=== PATIENT | male | born 1965 | race African-American/Black ===

== ENCOUNTER 2018-06-25 12:43 | Inpatient (IN) | payer OTHER ==
[2018-06-25 14:11] VITALS: BMI 21.2
--- NOTE | 2018-06-25 16:41 | HP ---
CIWA Score Nausea/Vomitin Muscle Tremors: 2 Anxiety: 3 Agitation: 2 Paroxysmal Sweats: 3 Orientation: 0-Oriented Tacttile Disturbances: 1-Very Mild Itch/Numbness Auditory Disturbances: 0-None Visual Disturbances: 0-None Headache: 0-None Present CIWA-Ar Total Score: 13 - Admission Criteria OASAS Guidelines: Admission for Medically Managed Detox: Requires at least one of the followin. CIWA greater than 12 2. Seizures within the past 24 hours 3. Delirium tremens within the past 24 hours 4. Hallucinations within the past 24 hours 5. Acute intervention needed for co occurring medical disorder 6. Acute intervention needed for co occurring psychiatric disorder 7. Severe withdrawal that cannot be handled at a lower level of care (continued vomiting, continued diarrhea, abnormal vital signs) requiring intravenous medication and/or fluids 8. Patient presents the following: CIWA greater than 12 Admission Criteria Met: Admission criteria met Admission ROS [facility] - [facility] Chief Complaint: I need to help myself , I need to stop drinking . Allergies/Adverse Reactions: Allergies Allergy/AdvReac Type Severity Reaction Status Date / Time fish derived [Fish derived] Allergy Mild Verified 07/28/15 18:32 sulfamethoxazole Allergy Mild Vomiting Verified 07/28/15 18:32 [From Bactrim DS] trimethoprim Allergy Mild Vomiting Verified 07/28/15 18:32 [From Bactrim DS] Unclassified Drug Allergy Mild Verified 07/28/15 18:32 History of Present Illness: 52 y/o m pt with a [id number] h/o chronic alcoholism seeking detox., - Ebola screening Have you traveled outside of the country in the last 21 days: No Have you had contact with anyone from an Ebola affected area: No Have you been sick,other than usual withdrawal symptoms: No Do you have a fever: No - Review of Systems Constitutional: Loss of Appetite, Changes in sleep, Unexplained wgt Loss (10 lkbs wt loss) EENT: reports: Dental Problems (upper and lower dentures) Respiratory: reports: No Symptoms reported Cardiac: reports: No Symptoms Reported GI: reports: No Symptoms Reported, Nausea : reports: No Symptoms Reported Musculoskeletal: reports: No Symptoms Reported Integumentary: reports: No Symptoms Reported Neuro: reports: Tremors Endocrine: reports: No Symptoms Reported Hematology: reports: No Symptoms Reported Psychiatric: reports: Anxious Other Systems: Reviewed and Negative Patient History - Patient Medical History Hx Anemia: No Hx Asthma: No Hx Chronic Obstructive Pulmonary Disease (COPD): No Hx Cancer: No Hx Cardiac Disorders: No Hx Congestive Heart Failure: No Hx Hypertension: No Hx Hypercholesterolemia: No Hx Pacemaker: No HX Cerebrovascular Accident: No Hx Seizures: No Hx Dementia: No Hx Diabetes: No Hx Gastrointestinal Disorders: No Hx Liver Disease: No Hx Genitourinary Disorders: No Hx Sexually Transmitted Disorders: No Hx Renal Disease (ESRD): No Hx Thyroid Disease: No Hx Human Immunodeficiency Virus (HIV): Yes (1987, not on meds ) Hx Hepatitis C: No Hx Depression: Yes Hx Suicide Attempt: No Hx Bipolar Disorder: No Hx Schizophrenia: No - Patient Surgical History Past Surgical History: No Hx Neurologic Surgery: No Hx Cataract Extraction: No Hx Cardiac Surgery: No Hx Lung Surgery: No Hx Breast Surgery: No Hx Breast Biopsy: No Hx Abdominal Surgery: No Hx Appendectomy: No Hx Cholecystectomy: No Hx Genitourinary Surgery: No Hx Section: No Hx Orthopedic Surgery: Yes (06/16/15-rt shoulder ) Anesthesia Reaction: No - PPD History Previous Implant?: Yes Documented Results: Positive w/o proof PPD to be Administered?: No - Reproductive History Patient is a Female of Child Bearing Age (11 -55 yrs old): No - Smoking Cessation Smoking history: Current every day smoker Have you smoked in the past 12 months: Yes Aproximately how many cigarettes per day: 10 Cigars Per Day: 0 Hx Chewing Tobacco Use: No Initiated information on smoking cessation: Yes 'Breaking Loose' booklet given: 06/25/18 - Substance & Tx. History Hx Alcohol Use: Yes Hx Substance Use: Yes Substance Use Type: Alcohol, Cocaine Hx Substance Use Treatment: Yes ([facility]) - Substances Abused Alcohol Route: Oral Frequency: Daily Amount used: vodka 12 pt.s /day Age of first use: 13 Date of Last Use: 06/25/18 Crack Route: Smoking Frequency: 3-6 times per week Amount used: $50./d Age of first use: 18 Date of Last Use: 06/24/18 Family Disease History - Family Disease History Family History: Denies Admission Physical Exam BHS - Vital Signs Vital Signs: Vital Signs - 24 hr 06/25/18 14:10 Temperature 95.9 F L Pulse Rate 56 L Respiratory 20 Rate Blood Pressure 119/66 52 y/o thin male pt aox3 in nad ambulating well , who is neat and cooperative with exam. - Physical General Appearance: Yes: Within Normal Limits, Appropriately Dressed, Thin, Anxious HEENTM: Yes: EOMI, Hearing grossly Normal, Normal Voice, GARY Respiratory: Yes: Chest Non-Tender, Lungs Clear, Normal Breath Sounds, No Respiratory Distress Neck: Yes: Supple, Trachea in good position Breast: Yes: Within Normal Limits Cardiology: Yes: Regular Rhythm, Regular Rate, S1, S2 Abdominal: Yes: Non Tender, Flat, Soft, Increased Bowel Sounds Genitourinary: Yes: Within Normal Limits Back: Yes: Decreased Range of Motion Musculoskeletal: Yes: Within Normal Limits Extremities: Yes: Tremors Neurological: Yes: shaker tender II-XII NML intact, Fully Oriented, Alert, Motor Strength 5/5 Integumentary: Yes: Moist Lymphatic: Yes: Within Normal Limits - Diagnostic (1) Alcohol dependence with uncomplicated withdrawal Current Visit: Yes Status: Chronic (2) Cocaine dependence, uncomplicated Current Visit: Yes Status: Chronic (3) HIV (human immunodeficiency virus infection) Current Visit: Yes Status: Chronic (4) Nicotine dependence Current Visit: Yes Status: Chronic Qualifiers: Nicotine product type: cigarettes Substance use status: uncomplicated Qualified Code(s): F17.210 - Nicotine dependence, cigarettes, uncomplicated Cleared for Admission [facility] - Detox or Rehab [facility] Level of Care: Medically Managed Detox Regimen/Protocol: Librium [facility] Breath Alcohol Content Breath Alcohol Content: 0 Urine Drug Screen - Results Drug Screen Negative: No Urine Drug Screen Results: SARA-Cocaine
[2018-06-25] MEDS ORDERED: MENTHOL/PHENOL 1 EACH UD MM PRN (16:54)
[2018-06-25] MEDS ORDERED: guaiFENesin/D-METHORPHAN HB 10 ML UNIT-DOSE CUPS PO PRN (16:54)
[2018-06-25] MEDS ORDERED: hydrOXYzine PAMOATE 25 MG CAPSULE (FP) PO PRN (16:54)
[2018-06-25] MEDS ORDERED: IBUPROFEN 400 MG TABLET (FP) PO PRN (16:54)
[2018-06-25] MEDS ORDERED: MAG HYDROX/AL HYDROX/SIMETH 30 ML UNIT-DOSE CUP PO PRN (16:54)
[2018-06-25] MEDS ORDERED: LOPERAMIDE HCL 2 MG CAPSULE PO PRN (16:54)
[2018-06-25] MEDS ORDERED: NICOTINE POLACRILEX 2 MG GUM BC PRN (16:54)
[2018-06-25] MEDS ORDERED: P-EPHED 60MG/TRIPROLIDI 2.5MG TABLET PO PRN (16:54)
[2018-06-25] MEDS ORDERED: ACETAMINOPHEN 325 MG TABLET (FP) PO PRN (16:54)
[2018-06-25] MEDS ORDERED: MAGNESIUM CITRATE 300 ML BOTTLE PO PRN (16:54)
[2018-06-25] MEDS ORDERED: chlordiazePOXIDE HCL 25 MG CAPSULE PO PRN (16:54)
[2018-06-25] MEDS ORDERED: MAGNESIUM HYDROX 2400MG/30ML ORAL SUSPENSION 30 ML CUP PO PRN (16:54)
[2018-06-25] MEDS: chlordiazePOXIDE HCL 25 MG CAPSULE PO SCH ×2 (19:14→22:23)
[2018-06-25] MEDS ORDERED: MELATONIN 5 MG TABLETS PO PRN (22:00)
[2018-06-25] MEDS: THIAMINE HCL 100 MG TABLET (FP) PO SCH (22:23)
[2018-06-26] MEDS: chlordiazePOXIDE HCL 25 MG CAPSULE PO SCH ×4 (05:50→22:27)
[2018-06-26 10:04] LABS: HEMATOCRIT 39.8 % (35.4-49); HEMOGLOBIN 13.9 GM/dL (11.7-16.9); MCH 28.7 pg (25.7-33.7); MCHC 34.9 g/dl (32.0-35.9); MEAN CELL VOLUME 82.4 fl (80-96); PLATELET COUNT 142 K/MM3 (134-434); RBC 4.83 M/mm3 (4.00-5.60); RDW 14.9 % (11.9-15.9); WHITE BLOOD COUNT 3.7 K/mm3 (4.0-10.0)
[2018-06-26] MEDS: PRENATAL VITAMINS W/ FOLIC ACID TABLET (FP) PO SCH (10:18)
[2018-06-26] MEDS: NICOTINE 14 MG/24 HOURS TOPICAL PATCH TD SCH (10:18)
[2018-06-26 10:31] LABS: ALBUMIN 3.4 g/dl (3.4-5.0); ALK PHOS 65 U/L (45-117); ANION GAP 6 MMOL/L (8-16); BILIRUBIN,TOTAL 0.3 mg/dL (0.2-1); BLOOD UREA NITROGEN 10 mg/dL (7-18); CALCIUM 8.5 mg/dL (8.5-10.1); CHLORIDE 106 mmol/L (98-107); CO2 29 mmol/L (21-32); CREATININE 1.2 mg/dL (0.55-1.3); GLUCOSE,RANDOM 74 mg/dL (74-106); POTASSIUM 4.4 mmol/L (3.5-5.1); SGOT/AST 9 U/L (15-37); SGPT/ALT 16 U/L (13-61); SODIUM 142 mmol/L (136-145); TOT PROT 6.8 g/dl (6.4-8.2)
--- NOTE | 2018-06-26 12:06 | PN ---
S CIWA - CIWA Score Nausea/Vomitin-No Nausea/No Vomiting Muscle Tremors: 2 Anxiety: 1-Mildly Anxious Agitation: 2 Paroxysmal Sweats: 1-Minimal Palms Moist Orientation: 1-Uncertain about Date Tacttile Disturbances: 0-None Auditory Disturbances: 0-None Visual Disturbances: 0-None Headache: 2-Mild CIWA-Ar Total Score: 9 BHS Progress Note (SOAP) Subjective: tremor anxiety sweating Objective: 06/26/18 12:07 Vital Signs Temperature 98.4 F 06/26/18 09:10 Pulse Rate 71 06/26/18 09:10 Respiratory Rate 16 06/26/18 09:10 Blood Pressure 98/62 06/26/18 09:10 O2 Sat by Pulse Oximetry (%) Laboratory Last Values WBC 3.7 K/mm3 (4.0-10.0) L 06/26/18 07:00 RBC 4.83 M/mm3 (4.00-5.60) 06/26/18 07:00 Hgb 13.9 GM/dL (11.7-16.9) 06/26/18 07:00 Hct 39.8 % (35.4-49) 06/26/18 07:00 MCV 82.4 fl (80-96) 06/26/18 07:00 MCH 28.7 pg (25.7-33.7) 06/26/18 07:00 MCHC 34.9 g/dl (32.0-35.9) 06/26/18 07:00 RDW 14.9 % (11.9-15.9) 06/26/18 07:00 Plt Count 142 K/MM3 (134-434) 06/26/18 07:00 MPV 10.0 fl (7.5-11.1) 06/26/18 07:00 Sodium 142 mmol/L (136-145) 06/26/18 07:00 Potassium 4.4 mmol/L (3.5-5.1) 06/26/18 07:00 Chloride 106 mmol/L (98-107) 06/26/18 07:00 Carbon Dioxide 29 mmol/L (21-32) 06/26/18 07:00 Anion Gap 6 MMOL/L (8-16) L 06/26/18 07:00 BUN 10 mg/dL (7-18) 06/26/18 07:00 Creatinine 1.2 mg/dL (0.55-1.3) 06/26/18 07:00 Creat Clearance w eGFR > 60 (>60) 06/26/18 07:00 Random Glucose 74 mg/dL (74-106) 06/26/18 07:00 Calcium 8.5 mg/dL (8.5-10.1) 06/26/18 07:00 Total Bilirubin 0.3 mg/dL (0.2-1) 06/26/18 07:00 AST 9 U/L (15-37) L 06/26/18 07:00 ALT 16 U/L (13-61) 06/26/18 07:00 Alkaline Phosphatase 65 U/L (45-117) 06/26/18 07:00 Total Protein 6.8 g/dl (6.4-8.2) 06/26/18 07:00 Albumin 3.4 g/dl (3.4-5.0) 06/26/18 07:00 lab noted Assessment: 06/26/18 12:07 withdrawal sx Plan: continue detox
[2018-06-26] MEDS: THIAMINE HCL 100 MG TABLET (FP) PO SCH (22:27)
[2018-06-27] MEDS: chlordiazePOXIDE HCL 25 MG CAPSULE PO SCH ×2 (05:03→10:06)
[2018-06-27] MEDS: NICOTINE 14 MG/24 HOURS TOPICAL PATCH TD SCH (10:06)
[2018-06-27] MEDS: PRENATAL VITAMINS W/ FOLIC ACID TABLET (FP) PO SCH (10:06)
[2018-06-27] MEDS: chlordiazePOXIDE 5 MG CAPSULE PO SCH ×2 (17:10→22:32)
--- NOTE | 2018-06-27 17:32 | PN ---
S CIWA - CIWA Score Nausea/Vomitin-No Nausea/No Vomiting Muscle Tremors: 3 Anxiety: 3 Agitation: 0-Normal Activity Paroxysmal Sweats: 3 Orientation: 0-Oriented Tacttile Disturbances: 0-None Auditory Disturbances: 0-None Visual Disturbances: 2-Mild Sensitivity Headache: 0-None Present CIWA-Ar Total Score: 11 BHS Progress Note (SOAP) Subjective: Tremors, Anxious, Sweating. Objective: PATIENT A & O X 3. IN NO ACUTE DISTRESS. 06/27/18 17:33 Vital Signs Temperature 97.5 F L 06/27/18 13:16 Pulse Rate 57 L 06/27/18 13:16 Respiratory Rate 20 06/27/18 13:16 Blood Pressure 108/68 06/27/18 13:16 O2 Sat by Pulse Oximetry (%) Laboratory Tests 06/26/18 06/26/18 06/26/18 07:00 07:00 07:00 WBC 3.7 L RBC 4.83 Hgb 13.9 Hct 39.8 MCV 82.4 MCH 28.7 MCHC 34.9 RDW 14.9 Plt Count 142 MPV 10.0 Sodium 142 Potassium 4.4 Chloride 106 Carbon Dioxide 29 Anion Gap 6 L BUN 10 Creatinine 1.2 Creat Clearance w eGFR > 60 Random Glucose 74 Calcium 8.5 Total Bilirubin 0.3 AST 9 L ALT 16 Alkaline Phosphatase 65 Total Protein 6.8 Albumin 3.4 RPR Titer Nonreactive LABS NOTED. Assessment: 06/27/18 17:34 WITHDRAWAL SYMPTOMS. Plan: CONTINUE DETOX. INCREASE DAILY PO FLUID INTAKE. ENCOURAGE AMBULATION.
[2018-06-27] MEDS: THIAMINE HCL 100 MG TABLET (FP) PO SCH (22:32)
[2018-06-28] MEDS: chlordiazePOXIDE 5 MG CAPSULE PO SCH ×2 (05:36→10:02)
[2018-06-28 09:14] VITALS: BP 100/76; PULSE 64; TEMP 97.1
[2018-06-28] MEDS: NICOTINE 14 MG/24 HOURS TOPICAL PATCH TD SCH (10:02)
[2018-06-28] MEDS: PRENATAL VITAMINS W/ FOLIC ACID TABLET (FP) PO SCH (10:02)
[2018-06-28] MEDS ORDERED: chlordiazePOXIDE HCL 10 MG CAPSULE PO SCH (17:00)
--- NOTE | 2018-06-28 20:03 | PN ---
BHS Progress Note (SOAP) Subjective: Patient Denies Any Current Withdrawal / Detox Symptoms and Reports That He Feels Well Overall. Objective: PATIENT A & O X 3, OBSERVED AMBULATING ON UNIT. IN NO ACUTE DISTRESS. 06/28/18 20:01 Vital Signs Temperature 97.1 F L 06/28/18 09:13 Pulse Rate 64 06/28/18 09:13 Respiratory Rate 16 06/28/18 09:13 Blood Pressure 100/76 06/28/18 09:13 O2 Sat by Pulse Oximetry (%) Laboratory Tests 06/26/18 06/26/18 06/26/18 07:00 07:00 07:00 WBC 3.7 L RBC 4.83 Hgb 13.9 Hct 39.8 MCV 82.4 MCH 28.7 MCHC 34.9 RDW 14.9 Plt Count 142 MPV 10.0 Sodium 142 Potassium 4.4 Chloride 106 Carbon Dioxide 29 Anion Gap 6 L BUN 10 Creatinine 1.2 Creat Clearance w eGFR > 60 Random Glucose 74 Calcium 8.5 Total Bilirubin 0.3 AST 9 L ALT 16 Alkaline Phosphatase 65 Total Protein 6.8 Albumin 3.4 RPR Titer Nonreactive LABS NOTED. Assessment: 06/28/18 20:02 COMPLETION OF DETOX REGIMEN. Plan: PATIENT SCHEDULED FOR DISCHARGE FROM DETOX UNIT TODAY.
--- NOTE | 2018-06-28 20:12 | DS ---
[facility] Detox Discharge Summary Admission Date: 06/25/18 Discharge Date: 06/28/18 - History Present History: Alcohol Dependence, Cocaine Dependence Additional Comments: AT TIME OF DISCHARGE FROM DETOX UNIT, PATIENT DENEIS CURRENT WITHDRAWAL / DETOX SYMPTOMS AND REPORTS THAT SHE FEELS WELL OVERALL. PATIENT EELCTING TO GO HOME TO BE WITH HIS FAMILY. PATIENT ADVISED TO CONSIDER LOCAL 12-STEP / NA / AA OUTPATIENT SUPPORT GROUPS FOR AFTERCARE. PATIENT REFERRED TO '[facility]' OUTPATIENT PROGRAM ([place], [place]) POSSIBLE AFTERCARE PROGRAM. PATIENT WAS DISCHARGED FROM DETOX UNIT IN STABLE MEDICAL CONDITION. Pertinent Past History: H.I.V., Depression, Nicotine Dependence. - Physical Exam Results Vital Signs: Vital Signs Temperature 97.1 F L 06/28/18 09:13 Pulse Rate 64 06/28/18 09:13 Respiratory Rate 16 06/28/18 09:13 Blood Pressure 100/76 06/28/18 09:13 O2 Sat by Pulse Oximetry (%) Pertinent Admission Physical Exam Findings: WITHDRAWAL SYMPTOMS. Laboratory Tests 06/26/18 06/26/18 06/26/18 07:00 07:00 07:00 WBC 3.7 L RBC 4.83 Hgb 13.9 Hct 39.8 MCV 82.4 MCH 28.7 MCHC 34.9 RDW 14.9 Plt Count 142 MPV 10.0 Sodium 142 Potassium 4.4 Chloride 106 Carbon Dioxide 29 Anion Gap 6 L BUN 10 Creatinine 1.2 Creat Clearance w eGFR > 60 Random Glucose 74 Calcium 8.5 Total Bilirubin 0.3 AST 9 L ALT 16 Alkaline Phosphatase 65 Total Protein 6.8 Albumin 3.4 RPR Titer Nonreactive LABS NOTED. - Treatment Hospital Course: Detox Protocol Followed, Detoxed Safely, Responded well, Discharged Condition Good Patient has Accepted a Rehab Referral to: PATIENT REFERRED TO '[facility] OUTPATIENT PROGRAM ([place], [place]). - Medication Discharge Medications: Ambulatory Orders Emtricitab/Rilpivirine/Tenofov [Complera -] 1 each PO HS 07/28/15 - Diagnosis (1) Alcohol dependence with uncomplicated withdrawal Status: Acute (2) Cocaine dependence, uncomplicated Status: Chronic (3) HIV (human immunodeficiency virus infection) Status: Chronic Qualifiers: HIV symptom status: unspecified Qualified Code(s): B20 - Human immunodeficiency virus [HIV] disease (4) Nicotine dependence Status: Chronic Qualifiers: Nicotine product type: cigarettes Substance use status: uncomplicated Qualified Code(s): F17.210 - Nicotine dependence, cigarettes, uncomplicated - AMA Did Patient Leave Against Medical Advice: No
== END 2018-06-28 11:59 | disposition home or self-care (01) | DRG 897 ==
LOC: YASAS 12:43 → Y3N 17:41
PROVIDERS: ADMIT Neuromusculoskeletal Medicine & OMM; ATTEND Neuromusculoskeletal Medicine & OMM
PROC: HZ2ZZZZ Detoxification Services for Substance Abuse Treatment (ICD-10-PCS; principal; 2018-06-25)
DX: F10.230 Alcohol dependence with withdrawal, uncomplicated (principal); F14.20 Cocaine dependence, uncomplicated; B20 Human immunodeficiency virus [HIV] disease; F17.210 Nicotine dependence, cigarettes, uncomplicated; Z88.1 Allergy status to other antibiotic agents; Z88.2 Allergy status to sulfonamides; Z91.013 Allergy to seafood
CPT/HCPCS: 36415; 71046-TC-FY; 80053; 85027; 86593

== ENCOUNTER 2022-04-29 11:40 | Inpatient (IN) | payer OTHER ==
[2022-04-29 12:16] VITALS: BMI 19.9
[2022-04-29] MEDS ORDERED: MAGNESIUM HYDROX 2400MG/30ML ORAL SUSPENSION 30 ML CUP PO PRN (16:49)
[2022-04-29] MEDS ORDERED: hydrOXYzine PAMOATE 25 MG CAPSULE (FP) PO PRN (16:49)
[2022-04-29] MEDS ORDERED: LOPERAMIDE HCL 2 MG CAPSULE PO PRN (16:49)
[2022-04-29] MEDS ORDERED: ACETAMINOPHEN 325 MG TABLET (FP) PO PRN (16:49)
[2022-04-29] MEDS ORDERED: guaiFENesin 200 MG/10 ML 10 ML UNIT-DOSE CUPS PO PRN (16:49)
[2022-04-29] MEDS ORDERED: IBUPROFEN 400 MG TABLET (FP) PO PRN (16:49)
[2022-04-29] MEDS ORDERED: MAGNESIUM CITRATE 300 ML BOTTLE PO PRN (16:49)
[2022-04-29] MEDS ORDERED: P-EPHED 60MG/TRIPROLIDI 2.5MG TABLET PO PRN (16:49)
[2022-04-29] MEDS ORDERED: NICOTINE 10 MG CARTRIDGE (INHALER) IH PRN (16:49)
[2022-04-29] MEDS ORDERED: MAG HYDROX/AL HYDROX/SIMETH 30 ML UNIT-DOSE CUP PO PRN (16:49)
[2022-04-29] MEDS: THIAMINE HCL 100 MG TABLET (FP) PO SCH (21:50)
[2022-04-29] MEDS: MELATONIN 5 MG TABLETS PO SCH (21:50)
[2022-04-30 09:56] LABS: CALCIUM 8.4 mg/dL (8.5-10.1)
[2022-04-30 09:57] LABS: ALBUMIN 3.2 g/dl (3.4-5.0); BLOOD UREA NITROGEN 19.5 mg/dL (7-18)
[2022-04-30 09:59] LABS: HEMATOCRIT 37.3 % (35.4-49); HEMOGLOBIN 12.5 GM/dL (11.7-16.9); MCH 27.7 pg (25.7-33.7); MCHC 33.6 g/dl (32.0-35.9); MEAN CELL VOLUME 82.6 fl (80-96); MEAN PLT VOLUME 9.3 fl (7.5-11.1); PLATELET COUNT 142 10^3/uL (134-434); RBC 4.52 M/mm3 (4.00-5.60); RDW 15.7 % (11.9-15.9)
[2022-04-30 10:00] LABS: CREATININE 1.2 mg/dL (0.55-1.3)
[2022-04-30] MEDS ORDERED: PRENATAL VITAMINS W/ FOLIC ACID TABLET (FP) PO SCH (10:00)
[2022-04-30] MEDS ORDERED: NICOTINE 7 MG/24 HOURS TOPICAL PATCH TD SCH (10:00)
[2022-04-30 10:01] LABS: BILIRUBIN,TOTAL 0.3 mg/dL (0.2-1)
[2022-04-30 10:02] LABS: TOT PROT 7.6 g/dl (6.4-8.2)
[2022-04-30] MEDS ORDERED: NICOTINE 7 MG/24 HOURS TOPICAL PATCH TD PRN (12:38)
[2022-04-30] MEDS ORDERED: FLU VACC QS2022-23(6MOS UP)/PF 60 MCG/0.5 ML SYRINGE IM ONE (12:45)
[2022-04-30] MEDS: MELATONIN 5 MG TABLETS PO SCH (23:11)
[2022-04-30] MEDS: THIAMINE HCL 100 MG TABLET (FP) PO SCH (23:11)
[2022-05-01 07:17] VITALS: BP 115/64; PULSE 55; RESP 18; TEMP 98
== END 2022-05-01 09:35 | disposition left against medical advice (07) | DRG 894 ==
LOC: YASAS 11:40 → Y3W 14:06
PROVIDERS: ADMIT Allergy & Immunology; ATTEND Psychiatry & Neurology Pain Medicine
PROC: HZ42ZZZ Group Counseling for Substance Abuse Treatment, Cognitive-Behavioral (ICD-10-PCS; principal; 2022-04-29)
DX: F10.20 Alcohol dependence, uncomplicated (principal); F14.20 Cocaine dependence, uncomplicated; F17.210 Nicotine dependence, cigarettes, uncomplicated; Z21 Asymptomatic human immunodeficiency virus [HIV] infection status; R76.11 Nonspecific reaction to tuberculin skin test without active tuberculosis; Z88.2 Allergy status to sulfonamides; Z91.013 Allergy to seafood
CPT/HCPCS: 36415; 71046-TC-FY; 80053; 81003; 85027; 86780; 86803; 87811; C9803-CS; G0008; Q2036; U0003; U0005